=== PATIENT | male | born 1985 | race Caucasian/White ===

== ENCOUNTER 2022-04-27 03:47 | Emergency (ER) | payer SELFPAY ==
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
[2022-04-27 04:24] LABS: Absolute Neutrophil Ct (ANC) 13.13 x10^3/uL (1.4-6.9); Basophil (Absolute #) 0.04 x10^3/uL (0-0.4); Eosinophil % 0.9 % (0.00-5.0); Eosinophil (Absolute #) 0.15 x10^3/uL (0-0.5); Hematocrit 38.5 % (42-50); Lymphocyte (Absolute #) 1.94 x10^3/uL (1.0-4.6); Lymphocytes % 11.4 % (24.0-44.0); Mean Cell Volume 91.4 fL (78-100); Mean Corpuscular Hemoglobin 30.9 pg (26-32); Mean Corpuscular Hgb Concent. 33.8 g/dL (32-36); Monocyte (Absolute #) 1.67 x10^3/uL (0.0-1.3); Monocytes % 9.8 % (0.0-12.0); Neutrophil % 77.3 % (36.0-66.0); Platelet Count 281 x10^3/uL (150-450); Red Blood Count 4.21 x10^6/uL (4.1-5.6); Red Cell Distribution Width 12.6 % (11.5-14.0)
[2022-04-27 04:40] LABS: ALBUMIN 4.7 g/dL (3.5-5.0); ALKALINE PHOSPHATASE 95 U/L (38-126); ANION GAP 7.4 MEQ/L (5-15); BLOOD UREA NITROGEN 20 mg/dL (9-20); CHLORIDE 103 mmol/L (98-107); Carbon Dioxide 31 mmol/L (22-30); Creatinine 1 0.81 mg/dL (0.66-1.25); EST GLOMERULAR FILTRATION RATE > 60.0 ML/MIN; Glucose 98 mg/dL (74-106); Potassium 3.5 mmol/L (3.5-5.1); SGOT/AST 43 U/L (17-59); SGPT/ALT 26 U/L (0-50); SODIUM 137 mmol/L (137-145); Total Protein 7.7 g/dL (6.3-8.2)
[2022-04-27 04:41] LABS: ACETAMINOPHEN < 10 ug/ml (10-30); ETHYL ALCOHOL < 10 mg/dL (0-10); SALICYLATE < 1.0 mg/dL (2-20)
[2022-04-27 05:02] LABS: INFLUENZA A NEGATIVE (NEGATIVE); INFLUENZA B NEGATIVE (NEGATIVE); RESPIRATORY SYNCTIAL VIRUS NEGATIVE (Negative); SARS-CoV-2 Xpert Express NEGATIVE (NEGATIVE)
[2022-04-27 05:26] LABS: Slide Review 1 YES
[2022-04-27 07:53] LABS: Amphetamine,Urine POSITIVE (NEGATIVE); Barbiturate,Urine NEGATIVE (NEGATIVE); Benzodiazepine,Urine NEGATIVE (NEGATIVE); Cocaine,Urine NEGATIVE (NEGATIVE); Methadone,Urine NEGATIVE (NEGATIVE); Opiate,Urine NEGATIVE (NEGATIVE); PCP,Urine NEGATIVE (NEGATIVE); THC,Urine NEGATIVE (NEGATIVE)
--- NOTE | 2022-04-27 08:58 | XRAY ---
Indication: Confusion. No known injury. Multiple contiguous axial images obtained through the head without contrast. Comparison: None Study slightly degraded by motion artifact. No gross acute intracranial hemorrhage, abnormal extra-axial fluid collection, or mass effect. Fourth ventricle is midline without hydrocephalus. Ying-white matter differentiation preserved. Bony calvarium grossly intact. Visualized paranasal sinuses and mastoid air cells are clear. Impression: Motion artifact. No gross acute intracranial abnormalities. Comment: Preliminary interpretation made by [facility]. No critical discrepancy.
[2022-04-27 11:12] VITALS: BP 92/55; PULSE 61; O2SAT 99
== END 2022-04-27 12:40 | disposition left against medical advice (07) ==
LOC: ED 03:47
DX: Z02.89 Encounter for other administrative examinations (principal); D72.829 Elevated white blood cell count, unspecified; F15.10 Other stimulant abuse, uncomplicated; R45.1 Restlessness and agitation; F41.9 Anxiety disorder, unspecified; J02.9 Acute pharyngitis, unspecified; Z79.891 Long term (current) use of opiate analgesic; Z28.310 Unvaccinated for COVID-19; Z72.0 Tobacco use
CPT/HCPCS: 0241U; 36415; 70450; 80053; 80307; 85025; 87040; 87651; 99283; G0480